=== PATIENT | female | born 1985 | race African-American/Black ===

== ENCOUNTER 2025-05-05 23:47 | Emergency (ER) | payer SELFPAY | END 2025-05-06 01:28 | disposition home or self-care (01) | LOC: CSHERS 23:47 | DX: S80.01XA Contusion of right knee, initial encounter (principal); W18.30XA Fall on same level, unspecified, initial encounter; Y92.009 Unspecified place in unspecified non-institutional (private) residence as the place of occurrence of the external cause | CPT/HCPCS: 99283 ==